=== PATIENT | female | born 1985 | race African-American/Black ===

== ENCOUNTER 2017-12-27 19:30 | Emergency (ER) | payer MEDICAID, OTHER ==
[~2017-12-27] VITALS: Ht 154.9 cm; Wt 87.0 kg
[2017-12-27] MEDS ORDERED: CYCLOBENZAPRINE 10MG TABLET PO ONE (22:45)
[2017-12-27] MEDS ORDERED: KETOROLAC 60MG/2ML VIAL IM ONE (22:45)
[2017-12-28] MEDS ORDERED: ACETAMINOPHEN 500MG TABLET PO ONE ×2 (00:30→01:00)
[2017-12-28 03:15] VITALS: BP 111/63
== END 2017-12-28 03:15 | disposition home or self-care (01) ==
LOC: ER 19:30
DX: M54.5 Low back pain (principal); R03.0 Elevated blood-pressure reading, without diagnosis of hypertension; V49.49XA Driver injured in collision with other motor vehicles in traffic accident, initial encounter; Y93.89 Activity, other specified; Y92.488 Other paved roadways as the place of occurrence of the external cause; F12.90 Cannabis use, unspecified, uncomplicated
CPT/HCPCS: 72100; 81025; 96372; 99284; J1885; Z7610

== ENCOUNTER 2019-04-13 04:42 | Emergency (ER) | payer BC, MEDICAID ==
[~2019-04-13] VITALS: Ht 154.9 cm; Wt 98.0 kg
[2019-04-13] MEDS ORDERED: ALBUTEROL (0.083%) 2.5MG/3ML NEB HHN STA ×2 (05:10→06:23)
[2019-04-13] MEDS ORDERED: IPRATROPIUM BROMIDE (0.02%) 0.5MG/2.5ML NEB HHN STA ×2 (05:10→06:23)
[2019-04-13] MEDS ORDERED: ASPIRIN 325MG TABLET PO ONE (05:15)
[2019-04-13 05:31] LABS: BASOPHILS % 0.7 % (0.0-2.0); EOSINOPHILS % 2.6 % (0.0-5.0); HEMATOCRIT. 43.4 % (36.0-48.0); HEMOGLOBIN. 15.6 g/dL (12.0-16.0); LYMPHOCYTES % 26.1 % (20.0-50.0); MEAN CORPUSCULAR VOLUME 91.8 fL (81.0-99.0); MEAN PLATELET VOLUME 8.3 fl (7.4-10.4); MONOCYTES % 6.2 % (2.0-8.0); NEUTROPHILS % 64.4 % (40.0-76.0); PLATELET 258 x1000/uL (130-400); RED BLOOD CELL COUNT 4.72 mill/uL (4.2-5.4); RED CELL DISTRIBUTION WIDTH 12.5 % (11.6-14.6)
[2019-04-13 05:38] LABS: CHLORIDE 108 mEq/L (98-107)
[2019-04-13] MEDS ORDERED: PREDNISONE 20MG TABLET PO STA (06:23)
[2019-04-13 09:00] VITALS: BP 117/81
== END 2019-04-13 09:31 | disposition home or self-care (01) ==
LOC: ER 04:42
DX: J45.901 Unspecified asthma with (acute) exacerbation (principal); I10 Essential (primary) hypertension; F12.10 Cannabis abuse, uncomplicated; Z98.890 Other specified postprocedural states
CPT/HCPCS: 36415; 71045; 80053; 83880; 84484; 85025; 93005; 94640; 94644; 99285; J7512; J7611; Z7610